=== PATIENT | female | born 1970 | race Caucasian/White ===

== ENCOUNTER 2017-09-12 17:47 | Emergency (ER) | payer BC, MEDICAID ==
[~2017-09-12] VITALS: Ht 162.6 cm; Wt 86.2 kg
--- NOTE | 2017-09-12 18:00 | NUR ---
BIB RA D/T WEAK AND DISORIENTED WHILE WAITING TO PAY AT [employer] ONLINE; INITIAL BS - 21; D10 250 CC BOLUS IVPB X 1 GIVEN ON ROUTE; REPEAT BS 210. PATIENT CURRENTLY A/OX 4. BREATHING EVEN AND UNLABORED. NO SOB. VITALS STABLE. NO DEFICITS NOTED SAFETY AND COMFORT MEASURES IN PLACE. AWAITING MD ORDERS.
--- NOTE | 2017-09-12 18:11 | NUR ---
FOOD TRAY PROVIDED TO PATIENT.
[2017-09-12] MEDS ORDERED: ASPI-1152 PO (18:12)
[2017-09-12] MEDS ORDERED: INSU300I SQ (18:12)
[2017-09-12] MEDS ORDERED: INSU100V27 SQ (18:12)
[2017-09-12] MEDS ORDERED: LEVO100T9 PO (18:12)
[2017-09-12] MEDS ORDERED: VENL150C58 PO (18:12)
[2017-09-12 19:22] VITALS: BP 138/74
--- NOTE | 2017-09-12 19:23 | NUR ---
IV removed. Catheter intact and site benign. Pressure and 4x4 applied to site. No bleeding noted. Patient discharged to home in stable condition. Written and verbal after care instructions given. Patient verbalizes understanding of instruction.
== END 2017-09-12 19:22 | disposition home or self-care (01) ==
LOC: ER 17:48
DX: E10.649 Type 1 diabetes mellitus with hypoglycemia without coma (principal); Z79.4 Long term (current) use of insulin; Z79.82 Long term (current) use of aspirin
CPT/HCPCS: 82962 ×2; 99283; A4606; Z7610